=== PATIENT | female | born 1985 | race Two or more races ===

== ENCOUNTER 2022-11-06 02:11 | Emergency (ER) | payer SELFPAY ==
[~2022-11-06] VITALS: Ht 154.9 cm; Wt 81.6 kg
--- NOTE | 2022-11-06 02:35 | NUR ---
[id number]. C SECTION SURGICAL WOUND PAIN, BLEEDING AND DRAINAGE. gave on 10/08/22. PATIENT IS IN PAIN AND CONCERNED ABOUT THE DISCHARGES. CLAIMED, SHE GAVE AT [facility] AND ASKED WE[facility] TESTER TO BRING HER THERE. SHE WAS SURPRISED THAT SHE WAS BROUGHT TO [facility]. PLACED COMFORTABLY IN BED. VITALS CHECKED.
--- NOTE | 2022-11-06 02:45 | NUR ---
SEEN BY DR HOLDER. PLAN WAS DISCUSSED WITH PATIENT NELI ABOUT POSS ADMISSION. PATIENT WANTS TO SIGN WAIVER FOR AMA CEE SHE WANTS TO GO BACK TO [facility] SINCE SHE HAD HER OPERATIONS THERE.
--- NOTE | 2022-11-06 03:08 | NUR ---
ABDOMINAL BINDER APPLIED. 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 DR HOLDER MADE AWARE. DISCHARGE PATIENT AMA.
--- NOTE | 2022-11-06 03:08 | NUR ---
Patient does not wish to proceed with medical care recommended by Dr. Downs. Patient given information related to possible complications, up to and including , which could occur as a result of leaving the hospital at this time. Patient verbalizes understanding of risks involved due to leaving against medical advice. Patient has signed AMA form.
[2022-11-06 03:10] VITALS: BP 116/68
== END 2022-11-06 03:12 | disposition left against medical advice (07) ==
LOC: ER 02:16
DX: A41.9 Sepsis, unspecified organism (principal); O86.09 Infection of obstetric surgical wound, other surgical site; L03.311 Cellulitis of abdominal wall